=== PATIENT | male | born 1990 | race Caucasian/White ===

== ENCOUNTER 2021-03-28 13:07 | Observation (INO) | payer OTHER ==
[~2021-03-28] VITALS: Ht 177.8 cm; Wt 122.5 kg
[~2021-03-28 13:07] MED LIST: ERYTHROMYCIN O3.5 GM OU; FLEXERIL 10 MG10 MG PO; IBUPROFEN600 MG PO
[2021-03-28 14:49] LABS: HEMOGLOBIN 15.9 gm/dl (14.0-17.5); RED BLOOD COUNT 5.54 M/UL (4.20-5.50); WHITE BLOOD COUNT 13.4 K/UL (4.5-11.0)
[2021-03-29 04:40] LABS: HEMOGLOBIN 14.8 gm/dl (14.0-17.5); RED BLOOD COUNT 4.86 M/UL (4.20-5.50); WHITE BLOOD COUNT 10.8 K/UL (4.5-11.0)
[2021-03-29 04:59] LABS: BUN/CREATININE RATIO 16 (0-10)
[2021-03-29] MEDS ORDERED: AMLODIPINE BESYL5 MG PO (08:52)
--- NOTE | 2021-03-29 11:59 | NUR ---
NURSE, KATIA RECHECKED BP, WAS 159/99. NOTIFIED.
== END 2021-03-29 13:29 | disposition home or self-care (01) ==
LOC: ER1 13:07 → CDU 17:55 → PROG CARE 23:53
PROVIDERS: Nurse Practitioner; ADMIT Internal Medicine
DX: E86.1 Hypovolemia (principal); N17.9 Acute kidney failure, unspecified; I16.0 Hypertensive urgency; I10 Essential (primary) hypertension; R10.11 Right upper quadrant pain; R74.8 Abnormal levels of other serum enzymes; F17.210 Nicotine dependence, cigarettes, uncomplicated; D72.829 Elevated white blood cell count, unspecified; Z20.822 Contact with and (suspected) exposure to COVID-19
CPT/HCPCS: 36415; 80048; 80053; 81001; 82550; 82553; 83605; 83690; 83735; 83874; 84484; 85025; 85027; 96372; 96374; 96375; 96376; 99285; G0378; J0500; J2405; Q9967; U0002